=== PATIENT | male | born 1950 | race Caucasian/White ===

== ENCOUNTER 2016-06-12 12:11 | Emergency (ER) | payer OTHER ==
[~2016-06-12] VITALS: Ht 175.3 cm; Wt 104.3 kg
[2016-06-12 12:19] VITALS: BP 136/88
--- NOTE | 2016-06-12 12:30 | ED UPPER/LOWER EXTREMITY COMPL ---
History of Present Illness General Chief Complaint: Foot or Ankle Injury Stated Complaint: RT FOOT PAIN Source: patient Exam Limitations: no limitations Allergies Coded Allergies: NO KNOWN ALLERGIES (03/06/11) Reconcile Medications Diclofenac Potassium 50 MG TABLET 1 TAB PO BID PRN PAIN Triage Note: PT COMPLAINS OF SUDDEN ONSET R FOOT PAIN THAT STARTED LAST PM. DENIES INJURY. TOOK MOTRIN WITH NO RELIEF Triage Nurses Notes Reviewed? 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 Patient denies any mechanism injury and has not been taken any medications for symptoms. Denies any foot or leg swelling Patient has been limping on his right foot that now he is beginning to develop left mid tibial pain in the past day. (RAI BUSTAMANTE) Vital Signs & Intake/Output Vital Signs & Intake/Output Vital Signs Date Time Temp Pulse Resp B/P Pulse O2 O2 Flow FiO2 Ox Delivery Rate 06/12 1253 97.7 06/12 1219 97.7 82 18 136/88 97 Room Air Past History Travel History Traveled to [place] past 21 day No Medical History Any Pertinent Medical History? 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 No (RAI BUSTAMANTE) Review of Systems Review of Systems Constitutional: Reports: no symptoms. EENTM: Reports: no symptoms. Respiratory: Reports: no symptoms. Cardiovascular: Reports: no symptoms. Gastrointestinal/Abdominal: Reports: no symptoms. Genitourinary: Reports: no symptoms. Musculoskeletal: Reports: see HPI, joint pain. Skin: Reports: no symptoms. Neurological/Psychological: Reports: no symptoms. Hematologic/Endocrine: Reports: no symptoms. Immunological: Reports: no symptoms. All Other Systems: Reviewed and Negative (RAI BUSTAMANTE) Physical Exam Physical Exam General Appearance: no apparent distress, alert, comfortable Neurologic/Tendon: normal sensation, normal motor functions, normal tendon functions, responds to pain, no evidence tendon injury Skin: intact, normal color, warm/dry Comments: Well-developed well-nourished person in no acute distress HEENT: Normal EENT exam, Neck: Supple, no lymphadenopathy, normal range of motion without pain or tenderness Back: Nontender, no CVA tenderness Cardiovascular: Regular rate and rhythms no murmurs rubs or gallops, normal JVP Respiratory: Chest nontender. No respiratory distress.breath sounds clear to auscultation bilaterally Abdomen: Soft, nontender nondistended, no appreciable organomegaly. Normal bowel sounds. No ascites Extremity: No edema, no calf tenderness to palpation, normal and equal pulses. Right knee normal inspection nontender Right ankle normal inspection tenderness noted to musculotendinous junction of the Achilles, no swelling Full active range of motion noted with mild pain to dorsiflexion plantar flexion , noted pain with passive range of motion of dorsiflexion 5/5 resisted range of motion with plantar flexion with pain Left knee normal inspection nontender full active range of motion Left leg noted mid tibial point tenderness no signs of trauma no swelling Neuro: Alert oriented x3, motor sensory normal, Skin: No appreciable rash on exposed skin, skin is warm and dry. Psych: Mood and affect is normal, memory and judgment is normal. (CHLOE QUINTANA,RAI) Progress Differential Diagnosis: arterial insufficiency, compartment syndrome, contusion, dislocation, DVT, fracture, gout, septic arthritis, sprain, tendon injury Diagnostic Imaging: Viewed by Me: Radiology Read. Radiology Impression: no fracture Comments: PATIENT: FRANCOISE CARR PRESENT AGE: 66 PATIENT ACCOUNT NO: [id number] : 52 LOCATION: [facility] ORDERING PHYSICIAN: RAI QUINTANA SERVICE DATE: 06/12/16 EXAM TYPE: RAD - XRY-HEEL, RIGHT EXAMINATION: XR CALCANEUS, RIGHT CLINICAL INFORMATION: Right calcaneal pain. COMPARISON: No relevant prior imaging. TECHNIQUE: Lateral and axial views of the right calcaneus were obtained. FINDINGS: There is mild right plantar calcaneal spurring and a small hypertrophic osteophyte at the Achilles insertion on the calcaneal tuberosity. There is no acute fracture. No joint effusion. Soft tissues are unremarkable. IMPRESSION: Mild plantar calcaneal spurring and a small hypertrophic osteophyte at the Achilles insertion. PATIENT: FRANCOISE CARR PRESENT AGE: 66 PATIENT ACCOUNT NO: [id number] : 52 LOCATION: [facility] ORDERING PHYSICIAN: RAI QUINTANA SERVICE DATE: 06/12/161242 EXAM TYPE: RAD - [id number], LEFT EXAMINATION: XR TIBIA AND FIBULA, LEFT CLINICAL INFORMATION: Left mid tibial pain. COMPARISON: No relevant prior imaging. TECHNIQUE: AP and lateral views of the left tibia and fibula were obtained. FINDINGS: There is no acute fracture or dislocation. Soft tissues are unremarkable. Limited visualization of the left knee reveals a few well marginated calcifications at the anterior margin of the tibial plateau that may represent loose bodies. There is asymmetric narrowing of the medial compartment of the knee with associated marginal hypertrophic spurring. IMPRESSION: There are a few well marginated calcifications at the anterior margin of the tibial plateau that are suspected to represent loose bodies within the joint space. There is asymmetric degenerative narrowing of the medial compartment of the left knee. Otherwise unremarkable examination with no evidence of acute fracture or dislocation. (RAI BUSTAMANTE) Plan of Care: Orders Procedure Date/time Status Durable Medical Equipment 06/12 1346 Active Due to history of present illness and exam findings there is suspicion of right Achilles tendinitis. X-rays were unremarkable for acute fractures patient was given crutches for fall prevention and was given copies of x-ray findings FOR OUTSOURCED orthopedic follow-up (RAI BUSTAMANTE) Departure Departure Disposition: HOME OR SELF CARE Condition: Stable Clinical Impression Primary Impression: Achilles tendonitis Referrals: ADI AARON MD (PCP/Family) Additional Instructions: As discussed on Wednesday if symptoms still continue follow-up with your established orthopedic doctor. Please provide the orthopedic doctor with the copies of the x-rays for follow-up. Begin the prescription OF DICLOFENAC for pain and inflammation, this prescription is waiting at your pharmacy. If symptoms worsen return to emergency room. Begin icing the area directly 20 minutes every 2 hours. Again using crutches and take a walk without pain Departure Forms: Customer Survey General Discharge Information Prescriptions: Current Visit Scripts Diclofenac Potassium 1 TAB PO BID PRN PAIN #20 TAB (RAI BUSTAMANTE) PA/ORDER TO DELIVERY SUPERVISOR Co-Sign Statement Statement: ED Attending supervision documentation- [] I saw and evaluated the patient. I have also reviewed all the pertinent lab results and diagnostic results. I agree with the findings and the plan of care as documented in the PA's/ORDER TO DELIVERY SUPERVISOR's documentation. [X] I have reviewed the ED Record and agree with the PA's/ORDER TO DELIVERY SUPERVISOR's documentation. [] Additions or exceptions (if any) to the PAs/ORDER TO DELIVERY SUPERVISOR's note and plan are summarized below: [] (LAYA SALAZAR,MAEVE)
--- NOTE | 2016-06-12 13:31 | RADIOLOGY REPORT ---
EXAMINATION: XR CALCANEUS, RIGHT CLINICAL INFORMATION: Right calcaneal pain. COMPARISON: No relevant prior imaging. TECHNIQUE: Lateral and axial views of the right calcaneus were obtained. FINDINGS: There is mild right plantar calcaneal spurring and a small hypertrophic osteophyte at the Achilles insertion on the calcaneal tuberosity. There is no acute fracture. No joint effusion. Soft tissues are unremarkable. IMPRESSION: Mild plantar calcaneal spurring and a small hypertrophic osteophyte at the Achilles insertion.
--- NOTE | 2016-06-12 13:38 | RADIOLOGY REPORT ---
EXAMINATION: XR TIBIA AND FIBULA, LEFT CLINICAL INFORMATION: Left mid tibial pain. COMPARISON: No relevant prior imaging. TECHNIQUE: AP and lateral views of the left tibia and fibula were obtained. FINDINGS: There is no acute fracture or dislocation. Soft tissues are unremarkable. Limited visualization of the left knee reveals a few well marginated calcifications at the anterior margin of the tibial plateau that may represent loose bodies. There is asymmetric narrowing of the medial compartment of the knee with associated marginal hypertrophic spurring. IMPRESSION: There are a few well marginated calcifications at the anterior margin of the tibial plateau that are suspected to represent loose bodies within the joint space. There is asymmetric degenerative narrowing of the medial compartment of the left knee. Otherwise unremarkable examination with no evidence of acute fracture or dislocation.
[2016-06-12] MEDS ORDERED: DICLOFENAC POTA50 M1 PO (13:45)
== END 2016-06-12 14:29 ==
LOC: ERH 12:11
DX: M76.61 Achilles tendinitis, right leg (principal)
CPT/HCPCS: 73590-LT; 73650-RT